=== PATIENT | female | born 2000 | race Caucasian/White ===

== ENCOUNTER 2019-11-24 05:23 | Emergency (ER) | payer OTHER ==
[~2019-11-24] VITALS: Ht 165.1 cm; Wt 76.3 kg
[2019-11-24] MEDS ORDERED: birth control (05:59)
--- NOTE | 2019-11-24 06:06 | NUR ---
PT UP TO RR WITH STEADY GAIT. URINE SAMPLE SENT. PT NOW RESTING ON GURNEY, MONITORS IN PLACE, SIDERAILS UP X2, CALL LIGHT WITHIN REACH. AWAITING LAB RESULT
[2019-11-24] MEDS ORDERED: SODIUM CHLORIDE 0.9% 1,000 ML IV ONE (06:17)
[2019-11-24] MEDS ORDERED: MORPHINE SULFATE 4 MG/ML, 1ML ONE (06:23)
[2019-11-24] MEDS ORDERED: ONDANSETRON 2MG/ML, 2ML ONE (06:23)
[2019-11-24 06:27] LABS: MICROSCOPIC NOT IND
[2019-11-24 06:29] LABS: CULTURE INDICATED? NO
[2019-11-24] MEDS ORDERED: SODIUM CHLORIDE FLUSH 10ML SYR IVF ONE (06:30)
[2019-11-24] MEDS ORDERED: ONDANSETRON 2MG/ML, 2ML IVPush ONE (06:30)
[2019-11-24] MEDS ORDERED: MORPHINE SULFATE 4 MG/ML, 1ML IVPush PRN (06:30)
[2019-11-24 06:36] LABS: BASOPHILS # (AUTO) 0.07 x10^3/uL (0-0.1); BASOPHILS % (AUTO) 1 % (0-1); EOSINOPHILS # (AUTO) 0.36 x10^3/uL (0-0.4); EOSINOPHILS % (AUTO) 4 % (1-7); LYMPHOCYTES # (AUTO) 2.27 x10^3/uL (1-3.4); LYMPHOCYTES % (AUTO) 23 % (22-44); MD NO; MEAN CORPUSCULAR HEMOGLOBIN 31.3 pg (27.0-34.8); MEAN CORPUSCULAR HGB CONC 33.6 g/dL (32.4-35.8); MEAN CORPUSCULAR VOLUME 93.3 fL (80-100); MEAN PLATELET VOLUME 8.8 fL (7.4-10.4); MONOCYTES # (AUTO) 0.57 x10^3/uL (0.2-0.8); MONOCYTES % (AUTO) 6 % (2-9); NEUTROPHILS # (AUTO) 6.57 x10^3/uL (1.8-6.8); NEUTROPHILS % (AUTO) 67 % (42-75); PLATELET COUNT 260 x10^3/uL (130-400); RED BLOOD COUNT 4.43 x10^6/uL (3.82-5.3); RED CELL DISTRIBUTION WIDTH 12.6 % (9.6-15.2)
--- NOTE | 2019-11-24 06:42 | NUR ---
Medicated per MAR, US tech at bedside.
[2019-11-24 06:47] LABS: ALBUMIN 3.5 g/dL (3.4-5.0); ANION GAP 8 mmol/L (5-15); CALCIUM 8.5 mg/dL (8.5-10.1); CHLORIDE 109 mmol/L (98-107)
[2019-11-24 06:53] LABS: ALANINE AMINOTRANSFERASE 13 U/L (12-78); ALKALINE PHOSPHATASE 60 U/L (45-117); BILIRUBIN,TOTAL 0.5 mg/dL (0.2-1.0); CREATININE 0.72 mg/dL (0.55-1.02); TOTAL PROTEIN 6.8 g/dL (6.4-8.2)
--- NOTE | 2019-11-24 06:54 | NUR ---
REPORT RECEIVED FROM CHANEL MARTE.
--- NOTE | 2019-11-24 06:54 | NUR ---
Bedside report given to Sissy MARTE.
--- NOTE | 2019-11-24 07:26 | NUR ---
pt resting in [facility]. pt's aox4. resps even and unlabored. pt denies any needs or concerns at this time.
[2019-11-24] MEDS ORDERED: OMNIPAQUE 350 MG/ML, 100ML BOTTLE ONE (08:32)
--- NOTE | 2019-11-24 08:48 | NUR ---
pt back to room from ct. pt's aox4. resps even and unlabored. pt denies any needs or concerns at this time.
--- NOTE | 2019-11-24 09:25 | NUR ---
ob cart in room.
--- NOTE | 2019-11-24 09:37 | NUR ---
PELVIC EXAM DONE AT BEDSIDE BY EDMD. THIS RN WALKED TO LAB.
[2019-11-24 09:53] LABS: CLUE CELLS NONE SEEN (NONE SEEN); WET PREP WBCS FEW (FEW)
--- NOTE | 2019-11-24 10:18 | NUR ---
PT RESTING IN [facility]. PT'S AOX4. RESPS EVEN AND UNLABORED. BP/SPO2 MONITORS IN PLACE. CALL LIGHT WITHIN REACH.
--- NOTE | 2019-11-24 10:42 | NUR ---
dr vargas spoke with dr bustillos relationship management lead
--- NOTE | 2019-11-24 11:29 | NUR ---
pt resting in [facility]. pt's aox4. resps even and unlabored. bp/spo2 monitors in place. call light within reach. pt denies any needs or concerns at this time.
--- NOTE | 2019-11-24 12:50 | NUR ---
DR ALEJANDRE AT BEDSIDE AT THIS TIME.
[2019-11-24 13:47] VITALS: BP 116/75
--- NOTE | 2019-11-24 13:56 | NUR ---
Patient given discharge instructions and they have confirmed that they understand the instructions.
== END 2019-11-24 13:57 | disposition home or self-care (01) ==
LOC: ED 08:57
DX: N83.01 Follicular cyst of right ovary (principal)
CPT/HCPCS: 36415; 74177; 76700; 76830; 80053; 81003; 83690; 84703; 85014; 85018; 85025; 87210; 87491; 87591; 87808; 96374; 96375; 99284; J2270; J2405; J7030; Q9967